=== PATIENT | male | born 1985 | race Caucasian/White ===

== ENCOUNTER 2017-09-15 09:03 | Emergency (ER) | payer SELFPAY ==
--- NOTE | 2017-09-15 09:08 | ER Document Report ---
HPI - HPI Patient complains to provider of: Dental abscess Onset: Other - Several days Onset/Duration: Gradual Pain Level: 4 Context: 32-year-old male complaining of swelling in dental abscess lower right anterior jaw. No fever or chills. Associated Symptoms: None Exacerbated by: Denies Relieved by: Denies - ROS ROS below otherwise negative: Yes Systems Reviewed and Negative: Yes All other systems reviewed and negative - REPRODUCTIVE Reproductive: DENIES: : Past Medical History - General Information source: Patient - Social History Smoking Status: Current Every Day Smoker Frequency of alcohol use: None Drug Abuse: None Lives with: Spouse/Significant other Family History: None, Reviewed & Not Pertinent - Medical History Medical History: Negative Surgical Hx: Negative - Immunizations Hx Diphtheria, Pertussis, Tetanus Vaccination: Yes - 2008 Vertical Provider Document - CONSTITUTIONAL Agree With Documented VS: Yes Exam Limitations: No Limitations General Appearance: No Apparent Distress - INFECTION CONTROL TRAVEL OUTSIDE OF THE [place] IN LAST 30 DAYS: No - HEENT HEENT: Normocephalic Notes: Extensive decay and gingivitis throughout his mouth with a dental abscess lower anterior right jaw no adenopathy. - NECK Neck: Supple. negative: Lymphadenopathy-Left, Lymphadenopathy-Right - NEURO Level of Consciousness: Awake - DERM Integumentary: No Rash Discharge - Discharge Clinical Impression: Dental abscess Condition: Good Disposition: HOME, SELF-CARE Instructions: Dental Infection or Abscess ([facility]), Dentist, Penicillin V K ([facility]) , Ibuprofen (General) ([facility]), Acetaminophen, Topical Lidocaine ([facility]) Additional Instructions: Warm compress Motrin Tylenol Penicillin Lidocaine to numb the area See the dentist Return to the emergency room with worsening of symptoms Prescriptions: Ibuprofen [Motrin 800 mg Tablet] 800 mg PO Q8HP PRN #30 tablet PRN Reason: Penicillin V Potassium [Penicillin Vk 500 mg Tablet] 500 mg PO QID #40 tablet
[2017-09-15 09:09] VITALS: BP 125/76
[2017-09-15] MEDS ORDERED: ONDANSETRON 4 MG TAB.RAPDIS PO ONE (09:14)
[2017-09-15] MEDS ORDERED: LIDOCAINE 2% VISCOUS SOLN 20 ML UDCUP PO ONE (09:14)
[2017-09-15] MEDS ORDERED: ACETAMINOPHEN 325 MG TABLET PO ONE (09:14)
[2017-09-15] MEDS ORDERED: IBUPROFEN 800 MG TABLET PO ONE (09:14)
[2017-09-15] MEDS ORDERED: PENICILLIN V POTASSIUM 500 MG TABLET PO ONE (09:14)
== END 2017-09-15 09:29 | disposition home or self-care (01) ==
LOC: ER 09:03
DX: K04.7 Periapical abscess without sinus (principal); K02.9 Dental caries, unspecified; K05.10 Chronic gingivitis, plaque induced; F17.200 Nicotine dependence, unspecified, uncomplicated
CPT/HCPCS: 99282; S0119; J3490

== ENCOUNTER 2018-09-16 15:03 | Emergency (ER) | payer SELFPAY ==
[2018-09-16 15:28] VITALS: BP 115/67
[2018-09-16] MEDS ORDERED: KETOROLAC TROMETHAMINE INJ/PF 30 MG/1 ML SDV IV ONE (16:01)
[2018-09-16] MEDS ORDERED: ONDANSETRON HCL INJ/PF 4 MG/2 ML SDV IV ONE (16:02)
--- NOTE | 2018-09-16 16:02 | ER Document Report ---
Addendum entered and electronically signed by BLAS GONSALEZ NP 09/16/18 16:59: Course - Re-evaluation Re-evalutation: 09/16/18 16:57 Patient states that he needs to leave because his employer is threatening to fire him. The patient has decided not to proceed with further recommended testing or treatment to determine the cause of her symptoms. The risk and alternatives to the recommendation were discussed the patient voiced understanding. The patient appears clinically to have the capacity to make this decision. The patient was instructed that they could return to the ER at any time to complete the testing or treatment. - Vital Signs Vital signs: Temp Pulse Resp BP Pulse Ox 98.0 F 70 14 115/67 97 09/16/18 15:26 09/16/18 15:26 09/16/18 15:26 09/16/18 15:26 09/16/18 15:26 - Laboratory Result Diagrams: 09/16/18 16:07 09/16/18 16:07 Laboratory results interpreted by me: 09/16/18 09/16/18 16:07 16:07 Sodium 136.5 L Urine Blood SMALL H 09/16/18 16:58 Labs- Entire Visit 09/16/18 09/16/18 09/16/18 16:07 16:07 16:07 WBC 8.0 RBC 4.83 Hgb 14.8 Hct 43.4 MCV 90 MCH 30.7 MCHC 34.2 RDW 13.9 Plt Count 407 Seg Neutrophils % 62.4 Lymphocytes % 26.0 Monocytes % 9.6 Eosinophils % 1.2 Basophils % 0.8 Absolute Neutrophils 5.0 Absolute Lymphocytes 2.1 Absolute Monocytes 0.8 Absolute Eosinophils 0.1 Absolute Basophils 0.1 Sodium 136.5 L Potassium 4.5 Chloride 100 Carbon Dioxide 29 Anion Gap 8 BUN 10 Creatinine 0.70 Est GFR ( Amer) > 60 Est GFR (Non-Af Amer) > 60 Glucose 80 Calcium 9.8 Total Bilirubin 0.5 Direct Bilirubin 0.2 Neonat Total Bilirubin Not Reportable Neonat Direct Bilirubin Not Reportable Neonat Indirect Bili Not Reportable AST 19 ALT 21 Alkaline Phosphatase 55 Total Protein 7.7 Albumin 4.8 Urine Color COLORLESS Urine Appearance CLEAR Urine pH 7.0 Ur Specific [place] 1.000 Urine Protein NEGATIVE Urine Glucose (UA) NEGATIVE Urine Ketones NEGATIVE Urine Blood SMALL H Urine Nitrite NEGATIVE Urine Bilirubin NEGATIVE Urine Urobilinogen NEGATIVE Ur Leukocyte Esterase NEGATIVE Urine WBC (Auto) 0 Urine RBC (Auto) 0 Urine Mucus (Auto) RARE Urine Ascorbic Acid NEGATIVE Discharge - Discharge Clinical Impression: Flank pain Hematuria Qualifiers: Hematuria type: unspecified type Qualified Code(s): R31.9 - Hematuria, unspecified Disposition: AGAINST MEDICAL ADVICE Forms: Return to Work Original Note: ED Medical Screen (RME) - General Chief Complaint: Flank Pain Stated Complaint: BACK PAIN Time Seen by Provider: 09/16/18 16:00 Mode of Arrival: Ambulatory Information source: Patient Notes: Patient presents complaining of right flank pain off and on for the past 3 days. Patient does report diarrhea and nausea. No vomiting. Patient reports some dysuria. Patient also complains of feeling lightheaded. No fever. I have greeted and performed a rapid initial assessment of this patient. A comprehensive ED assessment and evaluation of the patient, analysis of test results and completion of the medical decision making process will be conducted by additional ED providers. TRAVEL OUTSIDE OF THE [place] IN LAST 30 DAYS: No - Related Data Allergies/Adverse Reactions: No Known Allergies Allergy (Verified 09/16/18 15:06) Past Medical History - Social History Frequency of alcohol use: None Drug Abuse: Marijuana Renal/ Medical History: Denies: Hx Peritoneal Dialysis - Immunizations Hx Diphtheria, Pertussis, Tetanus Vaccination: Yes - 2008 Physical Exam - Vital signs Vitals: Temp Pulse Resp BP Pulse Ox 98.0 F 70 14 115/67 97 09/16/18 15:26 09/16/18 15:26 09/16/18 15:26 09/16/18 15:26 09/16/18 15:26 - Back Back: CVA tenderness - right Course - Vital Signs Vital signs: Temp Pulse Resp BP Pulse Ox 98.0 F 70 14 115/67 97 09/16/18 15:26 09/16/18 15:26 09/16/18 15:26 09/16/18 15:26 09/16/18 15:26
[2018-09-16 16:22] LABS: ABSOLUTE BASOPHILS # (AUTO) 0.1 10^3/uL (0.0-0.2); ABSOLUTE EOSINOPHILS # (AUTO) 0.1 10^3/uL (0.0-0.6); ABSOLUTE LYMPHOCYTES (AUTO) 2.1 10^3/uL (0.5-4.7); ABSOLUTE MONOCYTES (AUTO) 0.8 10^3/uL (0.1-1.4); BASOPHILS % (AUTO) 0.8 % (0-2); EOSINOPHILS % (AUTO) 1.2 % (0-6); HEMATOCRIT 43.4 % (37.9-51.0); HEMOGLOBIN 14.8 g/dL (13.5-17.0); MEAN CORPUSCULAR HEMOGLOBIN 30.7 pg (27.0-33.4); MEAN CORPUSCULAR HGB CONC 34.2 g/dL (32.0-36.0); MEAN CORPUSCULAR VOLUME 90 fl (80-97); MONOCYTES % (AUTO) 9.6 % (3-13); PLATELET COUNT 407 10^3/uL (150-450); RED BLOOD COUNT 4.83 10^6/uL (4.35-5.55); RED CELL DISTRIBUTION WIDTH 13.9 % (11.5-14.0); SEGMENTED NEUTROPHILS % (AUTO) 62.4 % (42-78); TOTAL CELLS COUNTED % (AUTO) 100 %
[2018-09-16 16:28] LABS: APPEARANCE,URINE CLEAR; BILIRUBIN,URINE NEGATIVE (NEGATIVE); COLOR,URINE COLORLESS; GLUCOSE, URINE NEGATIVE (NEGATIVE); KETONES,URINE NEGATIVE (NEGATIVE); LEUKOCYTE ESTERASE,URINE NEGATIVE (NEGATIVE); NITRITE,URINE NEGATIVE (NEGATIVE); PROTEIN,URINE NEGATIVE (NEGATIVE); UROBILINOGEN,URINE NEGATIVE mg/dL (<2.0)
[2018-09-16 16:38] LABS: ALANINE AMINOTRANSFERASE 21 U/L (21-72); ALBUMIN 4.8 g/dL (3.5-5.0); ALKALINE PHOSPHATASE 55 U/L (38-126); ANION GAP 8 (5-19); ASPARTATE AMINO TRANSFERASE 19 U/L (17-59); BILIRUBIN,DIRECT 0.2 mg/dL (0.0-0.4); BILIRUBIN,TOTAL 0.5 mg/dL (0.2-1.3); BLOOD UREA NITROGEN 10 mg/dL (7-20); CALCIUM 9.8 mg/dL (8.4-10.2); CARBON DIOXIDE 29 mmol/L (22-30); CHLORIDE 100 mmol/L (98-107); GLUCOSE 80 mg/dL (75-110); POTASSIUM 4.5 mmol/L (3.6-5.0); SODIUM 136.5 mmol/L (137-145); TOTAL PROTEIN 7.7 g/dL (6.3-8.2)
== END 2018-09-16 17:18 | disposition left against medical advice (07) ==
LOC: ER 15:03
DX: R10.9 Unspecified abdominal pain (principal); R31.9 Hematuria, unspecified; R19.7 Diarrhea, unspecified; R11.0 Nausea; R30.0 Dysuria; R42 Dizziness and giddiness
CPT/HCPCS: 99284; 96374; 96375; 36415; 85025; 80053; 81001; J1885; J2405

== ENCOUNTER 2019-03-03 13:08 | Emergency (ER) | payer SELFPAY ==
[2019-03-03 13:19] VITALS: BP 123/82
--- NOTE | 2019-03-03 15:24 | ER Document Report ---
HPI - HPI Patient complains to provider of: dental pain Time Seen by Provider: 03/03/19 15:18 Onset: Other - 3 days Onset/Duration: Persistent Quality of pain: Achy Context: This 33-year-old male with history of dental decay presents emergency department with complaints of dental pain for the past 3 days. Reports he might have broken his tooth on something. Reports he has been taking Motrin without relief of symptoms. Patient reports he does not have insurance. Does not have a dentist. No other complaint such as fever vomiting diarrhea. Associated Symptoms: None Exacerbated by: Denies Relieved by: Denies Similar symptoms previously: Yes Recently seen / treated by doctor: No - REPRODUCTIVE Reproductive: DENIES: : Past Medical History - General Information source: Patient - Social History Smoking Status: Current Every Day Smoker Cigarette use (# per day): Yes Frequency of alcohol use: None Drug Abuse: None Occupation: [employer] Family History: None, Reviewed & Not Pertinent Patient has suicidal ideation: No Patient has homicidal ideation: No - Medical History Medical History: Negative Renal/ Medical History: Denies: Hx Peritoneal Dialysis Surgical Hx: Negative - Immunizations Hx Diphtheria, Pertussis, Tetanus Vaccination: Yes - 2008 Vertical Provider Document - CONSTITUTIONAL Agree With Documented VS: Yes Exam Limitations: No Limitations General Appearance: WD/WN, No Apparent Distress - INFECTION CONTROL TRAVEL OUTSIDE OF THE [place] IN LAST 30 DAYS: No - HEENT HEENT: Atraumatic, Normocephalic. negative: Conjuctival Injection, Pharyngeal Erythema Mouth Diagram: 1 - Patient opens his mouth wide clear voice complains of dental pain tooth #14. Widespread dental decay noted. No trismus no Gautam's no erythema no obvious swelling no pustule - NECK Neck: Supple - RESPIRATORY Respiratory: No Respiratory Distress - MUSCULOSKELETAL/EXTREMETIES Musculoskeletal/Extremeties: JOSSELYN THOMPSON - NEURO Level of Consciousness: Awake, Alert, Appropriate Motor/Sensory: No Motor Deficit - DERM Integumentary: Warm, Dry Course - Re-evaluation Re-evalutation: 03/03/19 15:27 Patient presents emergency department with widespread dental decay. Reports he is having some dental pain for the past 3 days to the left upper tooth. Requesting ibuprofen and penicillin. Patient was instructed on the importance of follow-up with a dentist. He was instructed on the [facility]. He was educated on Motrin. He verbalized understanding to all instructions. Dictation of this chart was performed using voice recognition software; therefore, there may be some unintended grammatical errors. - Vital Signs Vital signs: Temp Pulse Resp BP Pulse Ox 98.4 F 80 16 123/82 97 03/03/19 13:17 03/03/19 13:17 03/03/19 13:17 03/03/19 13:17 03/03/19 13:17 Discharge - Discharge Clinical Impression: Pain, dental Condition: Stable Disposition: HOME, SELF-CARE Instructions: [facility], Dentist, Ibuprofen (General) ([facility]), Penicillin V K ([facility]), Toothache ([facility]) Additional Instructions: *You have been evaluated for dental pain *Take medications as prescribed *Follow up with dentist this week *Return to ED for worsening condition, changes, needs Prescriptions: Ibuprofen [Motrin 800 mg Tablet] 800 mg PO TID #15 tablet Penicillin V Potassium [Penicillin Vk 500 mg Tablet] 500 mg PO BID #20 tablet
== END 2019-03-03 15:45 | disposition home or self-care (01) ==
LOC: ER 13:08
DX: K02.9 Dental caries, unspecified (principal); K08.89 Other specified disorders of teeth and supporting structures; F17.210 Nicotine dependence, cigarettes, uncomplicated
CPT/HCPCS: 99282